=== PATIENT | female | born 1940 | race Caucasian/White ===

== ENCOUNTER 2016-05-04 10:29 | Emergency (ER) | payer MEDICARE, OTHER ==
[~2016-05-04] VITALS: Ht 162.5 cm; Wt 59.4 kg
[~2016-05-04 10:29] MED LIST: ANASTROZOLE1 M1 PO; B121000 MCG/2 IM; METFORMIN HCL500 MG PO; Motrin,Rufen400 MG PO; NKHM; NORCO 5-325 TA1 EACH PO; PERCOCET 325 MG1 TA5 PO
== END 2016-05-04 16:59 | disposition short-term general hospital (02) ==
LOC: ED 10:29
DX: C79.81 Secondary malignant neoplasm of breast (principal); M25.552 Pain in left hip; Z90.89 Acquired absence of other organs